=== PATIENT | female | born 1995 | race American Indian/Alaskan Native ===

== ENCOUNTER 2019-08-15 15:10 | Emergency (ER) | payer SELFPAY ==
[2019-08-15 15:14] VITALS: BP 140/83
--- NOTE | 2019-08-15 15:24 | Emergency Department Report ---
Chief Complaint: Urogenital-Female Stated Complaint: STD CHECK Time Seen by Provider: 08/15/19 15:20 - HPI History of Present Illness: This is a 24-year-old female nontoxic, well in appearance with no signs of distress presents to the ED for STD check. Patient stated that her partner called and said has STD. Patient stated she is asymptotic. Denies any vaginal discharge, pain, or swelling. Denies any pelvic or abdominal pain. Patient denies any urinary symptoms. Patient denies any fever, chills, headache, nausea, vomiting, chest pain or shortness of breathe. denies any other symptoms or complaints. Denies any allergies or PMH. - Exam Vital Signs: Vital Signs 08/15/19 15:13 Temperature 98.4 F Pulse Rate 110 H Respiratory 18 Rate Blood Pressure 140/83 O2 Sat by Pulse 97 Oximetry Physical Exam: no pelvic pain. no abdominal pain. no urinary symptoms. no discharge. MSE screening note: Focused history and physical exam performed. Due to findings the following was ordered: ED Medical Decision Making - Medical Decision Making This is a 24-year-old male that presents with nonmedical emergency complaint. Patient is just requested for a STD test. Patient denies any symptoms. I gave patient many different referrals to follow-up with STD concerns. Patient was instructed to Follow-up with a primary care doctor in 3-5 days or if symptoms worsen and continue return to emergency room as soon as possible. At time of discharge, the patient does not seem toxic or ill in appearance. No acute signs of distress noted. Patient agrees to discharge treatment plan of care. No further questions noted by the patient. ED Disposition for MSE Clinical Impression: Possible exposure to STD Disposition: Z-07 MED SCREENING EXAM-LEFT Is pt being admited?: No Does the pt Need Aspirin: No Condition: Stable Instructions: Safe Sex (ED) Additional Instructions: Follow-up with the referrals that you have been provided in 3-5 days or if symptoms worsen and continue return to emergency room as soon as possible. Referrals: PRIMARY CARE, [Referring] - 3-5 Days FADY FERNANDEZ MD [Staff Physician] - 3-5 Days [facility] [Outside] - 3-5 Days [facility] [Outside] - 3-5 Days
== END 2019-08-15 15:30 | disposition left against medical advice (07) ==
LOC: ED 15:10
DX: Z20.2 Contact with and (suspected) exposure to infections with a predominantly sexual mode of transmission (principal)
CPT/HCPCS: 99281